=== PATIENT | female | born 1975 | race American Indian/Alaskan Native ===

== ENCOUNTER 2016-11-03 10:06 | Emergency (ER) | payer OTHER ==
--- NOTE | 2016-11-03 10:28 | Emergency Department Report ---
Chief Complaint: Headache Stated Complaint: MIGRAINE Time Seen by Provider: 11/03/16 10:24 - HPI History of Present Illness: 41 y/o female complain of migraine headache x 3 weeks .pt state she has a shunt in place 2011 from a tumor .pt state she unable to follow up with neurology .pt state sensitive to light with n/v/.pt state she has taken vicoden and percocet .pt state tried motrin and naproxen. - ROS Review of Systems: per HPI - Exam Vital Signs: Vital Signs 11/03/16 10:17 Temperature 98.5 F Pulse Rate 84 Respiratory 18 Rate Blood Pressure 161/113 O2 Sat by Pulse 100 Oximetry Physical Exam: GENERAL: The patient is well-developed and well-nourished. Patient is in NAD. HENT: Normocephalic. Atraumatic. Patient has moist mucous membranes. Throat: No erythema, swelling or exudates. EYES: Extraocular motions are intact, PERRL NECK: Supple. No meningitic signs are noted. There is no adenopathy noted. CHEST/LUNGS: Clear to auscultation bilaterally. No wheezing, rales or rhonchi noted. There is no respiratory distress noted. HEART/CARDIOVASCULAR: Regular rate and rhythm. Normal S1 S2. No murmurs, rubs , clicks, or gallops. ABDOMEN: Abdomen is soft, nontender.. Bowel sounds normoactive. There is no abdominal distention. Negative rebound tenderness. : Deferred. SKIN: There is no rash. There is no edema. There is no diaphoresis. NEURO: The patient is A&Ox3. The patient has no focal neurologic deficits. MUSCULOSKELETAL: There is no tenderness or deformity. There is no limitation range of motion. PSYCH: Pt has appropriate mood and affect. MSE screening note: Focused history and physical exam performed. Due to findings the following was ordered: ED Disposition for MSE Condition: Stable
[2016-11-03 11:01] LABS: Basophils % (Auto) 0.5 % (0.0-1.8); Hemoglobin 14.3 gm/dl (10.1-14.3); Mean Corpuscular HGB Conc 33 % (30-34); Mean Corpuscular Hemoglobin 33 pg (28-32); Mean Corpuscular Volume 98 fl (79-97); Red Cell Distribution Width 13.5 % (13.2-15.2); White Blood Count 4.6 K/mm3 (4.5-11.0)
[2016-11-03 11:22] LABS: Anion Gap 19 mmol/L; Blood Urea Nitrogen 10 mg/dL (7-17); Calcium 8.9 mg/dL (8.4-10.2); Carbon Dioxide 18 mmol/L (22-30); Glucose 107 mg/dL (65-100); Potassium 4.8 mmol/L (3.6-5.0); Sodium 139 mmol/L (137-145)
[2016-11-03 11:23] LABS: Platelet Count 172 K/mm3 (140-440)
[2016-11-03] MEDS ORDERED: REGLAN IV ONE (21:30)
[2016-11-03] MEDS ORDERED: DILAUDID IV ONE (21:30)
[2016-11-03] MEDS ORDERED: MAGNESIUM SULFATE 2GM/50ML 50 ML IV ONE (21:30)
--- NOTE | 2016-11-03 21:32 | Emergency Department Report ---
[id number] Time Seen by Provider: 11/03/16 21:19 Source: patient Mode of arrival: Ambulatory Limitations: No Limitations - History of Present Illness Initial comments: This is a 41-year-old female, previously unknown to me. She reports a past medical history of sickle cell disease, and pseudotumor cerebri. 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 Kellye Reports she has not followed up. She presents to the ER complaining of headache. The headache is throbbing. It has been present for over 3 weeks. It is associated with photophobia, nausea. Patient does describe nonspecific blurry vision, which is binocular. She reports that she will occasionally see double, but that she can "correct" vision as she needs to. This has been also going on for a few weeks. There is no extremity weakness. There is no extremity numbness. There is no ataxia. There is no neck pain or neck stiffness. He reports no relief with over-the- counter medications, and no relief with prescription narcotic therapy which she has received for her sickle cell disease. -: Gradual, week(s) Location: head Quality: aching Consistency: constant Improves with: none Worsens with: none Associated Symptoms: headaches, loss of appetite, nausea/vomiting. denies: confusion, chest pain, cough, diaphoresis, weakness - Related Data Home Medications Medication Instructions Recorded Confirmed Last Taken No Known Home Medications [No 11/03/16 11/03/16 Unknown Reported Home Medications] Allergies Allergy/AdvReac Type Severity Reaction Status Date / Time Sulfa (Sulfonamide Allergy Anaphylaxis Unverified 11/03/16 21:42 Antibiotics) ED Review of Systems ROS: Stated complaint: MIGRAINE Other details as noted in HPI Constitutional: malaise. 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 - Surgical History Past Surgical History?: Yes Hx Cholecystectomy: Yes (2008) Hx Appendectomy: Yes (2007) Additional Surgical History: ROU[employer]IV[employer]IVER shunt - Social History Smoking Status: Former Smoker Substance Use Type: Alcohol - Medications Home Medications: Home Medications Medication Instructions Recorded Confirmed Last Taken Type No Known Home Medications [No 11/03/16 11/03/16 Unknown History Reported Home Medications] ED Physical Exam - General Limitations: No Limitations General appearance: alert, in no apparent distress - Head Head exam: Present: atraumatic, normocephalic - Eye Eye exam: Present: normal appearance, PERRL, EOMI. Absent: nystagmus - ENT ENT exam: Present: normal exam, normal orophraynx, mucous membranes moist, normal external ear exam - Neck Neck exam: Present: normal inspection, full ROM. Absent: tenderness, meningismus - Respiratory Respiratory exam: Present: normal lung sounds bilaterally. Absent: respiratory distress, wheezes, rales, rhonchi, stridor, chest wall tenderness - Cardiovascular Cardiovascular Exam: Present: regular rate, normal rhythm, normal heart sounds. Absent: bradycardia, tachycardia, irregular rhythm, systolic murmur, diastolic murmur, rubs, gallop - GI/Abdominal GI/Abdominal exam: Present: soft, normal bowel sounds. Absent: distended, tenderness, guarding, rebound, rigid, pulsatile mass - Extremities Exam Extremities exam: Present: normal inspection, full ROM, normal capillary refill. Absent: tenderness, pedal edema, joint swelling, calf tenderness - Back Exam Back exam: Present: normal inspection, full ROM. Absent: tenderness, CVA tenderness (R), CVA tenderness (L), muscle spasm, paraspinal tenderness, vertebral tenderness - Neurological Exam Neurological exam: Present: alert, oriented X3, other (Extraocular movements intact. Tongue midline. No facial droop. Facial sensation intact to light touch in the V1, V2, V3 distribution bilaterally. 5 and 5 strength in 4 extremities.. Sensation is intact to light touch in 4 extremities.). Absent: motor sensory deficit - Psychiatric Psychiatric exam: Present: normal affect, normal mood - Skin Skin exam: Present: warm, dry, intact, normal color. Absent: rash ED Course Vital Signs 11/03/16 11/03/16 11/03/16 10:17 21:35 21:41 Temperature 98.5 F 98.5 F Pulse Rate 84 78 Respiratory 18 12 Rate Blood Pressure 161/113 Blood Pressure 171/106 [Right] O2 Sat by Pulse 100 100 100 Oximetry 11/03/16 11/03/16 11/03/16 22:00 23:06 23:22 Temperature Pulse Rate 79 68 Respiratory 17 12 Rate Blood Pressure 171/106 133/90 Blood Pressure [Right] O2 Sat by Pulse 99 100 99 Oximetry - Reevaluation(s) Reevaluation #1: 11/03/16 22:01 Differential diagnosis: Migraine headache, cluster headache, tension headache, [employer] shunt malfunction Assessment and plan: 41-year-old female with 3 weeks of headache. She is afebrile with slight hypertension but otherwise reassuring vital signs. She has a GCS of 15, with an NIH score of 0. Visual acuity is intact to finger counting, color perception, rating at a close distance. We will chew her symptomatically, including giving her hydromorphone. Given her reported history of sickle cell disease, she may have a high degree of pain tolerance, and may benefit from adjunctive narcotic therapy. We will obtain noncontrast CT scan of the head, as well as shunt series. Reevaluation #2: 11/04/16 00:30 CT scan shows non specific findings. case d/w neurosurgery Dr Villavicencio at [facility], who recommends er to er transfer with plan for neurosurgical consultation ED Medical Decision Making - Lab Data Result diagrams: 11/03/16 10:43 11/03/16 10:43 Vital Signs 11/03/16 11/03/16 10:17 21:41 Temperature 98.5 F 98.5 F Pulse Rate 84 78 Respiratory 18 12 Rate Blood Pressure 161/113 Blood Pressure 171/106 [Right] O2 Sat by Pulse 100 100 Oximetry Lab Results 11/03/16 11/03/16 Range/Units 10:43 10:43 WBC 4.6 (4.5-11.0) K/mm3 RBC 4.40 (3.65-5.03) M/mm3 Hgb 14.3 (10.1-14.3) gm/dl Hct 43.0 H (30.3-42.9) % MCV 98 H (79-97) fl MCH 33 H (28-32) pg MCHC 33 (30-34) % RDW 13.5 (13.2-15.2) % Plt Count 172 (140-440) K/mm3 Lymph % (Auto) 47.6 H (13.4-35.0) % [place] % (Auto) 9.1 H (0.0-7.3) % Eos % (Auto) 1.0 (0.0-4.3) % Baso % (Auto) 0.5 (0.0-1.8) % Lymph # 2.2 (1.2-5.4) K/mm3 [place] # 0.4 (0.0-0.8) K/mm3 Eos # 0.0 (0.0-0.4) K/mm3 Baso # 0.0 (0.0-0.1) K/mm3 Seg Neutrophils % 41.8 (40.0-70.0) % Seg Neutrophils # 1.9 (1.8-7.7) K/mm3 Sodium 139 (137-145) mmol/L Potassium 4.8 (3.6-5.0) mmol/L Chloride 107.0 (98-107) mmol/L Carbon Dioxide 18 L (22-30) mmol/L Anion Gap 19 mmol/L BUN 10 (7-17) mg/dL Creatinine 0.8 (0.7-1.2) mg/dL Estimated GFR > 60 ml/min BUN/Creatinine Ratio 12.50 % Glucose 107 H (65-100) mg/dL Calcium 8.9 (8.4-10.2) mg/dL - Radiology Data Radiology results: report reviewed Critical care attestation.: If time is entered above; I have spent that time in minutes in the direct care of this critically ill patient, excluding procedure time. ED Disposition Clinical Impression: History of creation of ventriculoperitoneal shunt Headache Qualifiers: Headache type: unspecified Headache chronicity pattern: acute headache Intractability: not intractable Qualified Code(s): R51 - Headache Disposition: DC/TX SHORT-TERM GEN HOSP INPT Is pt being admited?: No Does the pt Need Aspirin: No Condition: Good Referrals: PRIMARY CARE, [Primary Care Provider] - 3-5 Days
[2016-11-03 22:28] LABS: INR 0.99 (0.87-1.13)
--- NOTE | 2016-11-03 23:58 | Cat Scan Report ---
FINAL REPORT PROCEDURE: CT HEAD/BRAIN WO CON TECHNIQUE: Computerized tomography of the head was performed without contrast material. HISTORY: Headache. Ventriculoperitoneal shunt. COMPARISON: No prior studies are available for comparison. FINDINGS: Skull and scalp: Slight concavity of the left medial orbital wall. Paranasal sinuses: Normal. Ventricles and subarachnoid spaces: Ventriculoperitoneal shunt enters the right frontal area and terminates near the midline in the expected location of right lateral ventricle. Right lateral ventricles not seen. Cerebrum: No evidence of hemorrhage, acute infarction or mass . Cerebellum and brainstem: No evidence of hemorrhage, acute infarction or mass. Vasculature: Normal. Comments: None. IMPRESSION: Right-sided shunt in place, with slit like/non visualized right lateral ventricles. Etiology is uncertain. Consider intermittent proximal catheter obstruction with collapsed ventricle, degree of shunting, or could be related to intracranial pressure and non compliant ventricles among the possible causes; also note findings are asymmetric and only involve the right lateral ventricle. No prior examination available for direct comparison. It would be helpful to directly compare with outside studies to assess for degree of change and consider further evaluation and followup including MRI as felt to be warranted clinically and if patient has no contraindication to MRI. Slight concavity of the left medial orbital wall, cannot exclude subtle age indeterminate, likely chronic left medial orbital wall fracture.
[2016-11-04 00:35] VITALS: BP 133/90
--- NOTE | 2016-11-04 08:38 | XRay Report ---
The AP chest: The MACHINING [employer]PARTMENT SUPERVISOR shunt line is seen coursing through the right soft tissues of the neck and over the mediastinum. The shunt line is difficult to clearly follow since it is obscured by the mediastinal tissues. The mediastinal contour is normal and the lungs are clear. Impression: Unremarkable chest. No apparent shunt line abnormality identified on this limited visualization. Upright KUB: The lower end of the shunt line in the chest as well as in the abdomen is visualized and appears intact. There is a surgical mesh over the epigastrium. The abdominal gas pattern is generally unremarkable. No free air. Impression: Intact shunt tube.
--- NOTE | 2016-11-04 08:38 | XRay Report ---
The AP chest: The SOFTWARE ENGINEERING SUPERVISOR shunt line is seen coursing through the right soft tissues of the neck and over the mediastinum. The shunt line is difficult to clearly follow since it is obscured by the mediastinal tissues. The mediastinal contour is normal and the lungs are clear. Impression: Unremarkable chest. No apparent shunt line abnormality identified on this limited visualization. Upright KUB: The lower end of the shunt line in the chest as well as in the abdomen is visualized and appears intact. There is a surgical mesh over the epigastrium. The abdominal gas pattern is generally unremarkable. No free air. Impression: Intact shunt tube.
== END 2016-11-04 02:01 | disposition short-term general hospital (02) ==
LOC: ED 10:06
DX: G43.909 Migraine, unspecified, not intractable, without status migrainosus (principal); R11.0 Nausea; Z87.891 Personal history of nicotine dependence; Z88.2 Allergy status to sulfonamides
CPT/HCPCS: 36415; 70450; 71010; 74000; 80048; 84702; 85025; 85610; 96365; 96375; 99285; J1170; J2765; J2930; J3475

== ENCOUNTER 2022-03-05 07:34 | Day surgery (SDC) | payer OTHER ==
[2022-03-05] MEDS ORDERED: LACTATED RINGERS 1,000 ML IV SCH (09:00)
--- NOTE | 2022-03-05 11:11 | Anesthesia Consultation ---
Anesthesia Consult and Med Hx Date of service: 03/05/22 - Airway Anesthetic Teeth Evaluation: Good ROM Head & Neck: Adequate Mental/Hyoid Distance: Adequate Mallampati Class: Class II Intubation Access Assessment: Probably Good - Pulmonary Exam CTA: Yes - Cardiac Exam Cardiac Exam: RRR - Pre-Operative Health Status ASA Pre-Surgery Classification: ASA2 Proposed Anesthetic Plan: General - Pulmonary Hx Smoking: No Hx Asthma: No Hx Sleep Apnea: No (BROCK PRE SCREEN LOW RISK) - Cardiovascular System Hx Hypertension: Yes (ON MEDS X 1 WEEK) Hx Coronary Artery Disease: No Hx Heart Attack/AMI: No - Central Nervous System Hx Seizures: No CVA: No Hx Back Pain: Yes (FROM STONE) Hx Psychiatric Problems: No - Gastrointestinal Hx Gastroesophageal Reflux Disease: No - Hematic Hx Anemia: Yes (NOT RECENT) Hx Sickle Cell Disease: Yes (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
--- NOTE | 2022-03-05 11:12 | Anesthesia Day of Surgery ---
Anesthesia Day of Surgery - Day of Surgery Patient Examined: Yes Patient H&P Reviewed: Yes Patient is NPO: Yes
[2022-03-05] MEDS ORDERED: HYDROmorphone 1 MG/1 ML INJ ONE (11:14)
[2022-03-05] MEDS ORDERED: propofoL 200 MG/20 ML VIAL IV ONE (11:14)
[2022-03-05] MEDS ORDERED: MIDAZOLAM 2 MG/2 ML INJ IV NR (11:24)
[2022-03-05] MEDS ORDERED: MIDAZOLAM 2 MG/2 ML INJ ONE (11:25)
[2022-03-05] MEDS ORDERED: ceFAZolin/STERILE WATER 2 GM/20 ML SYRINGE IV SCH (12:00)
--- NOTE | 2022-03-05 12:23 | Post Operative Note ---
Pre-op diagnosis: r ureteral stone Post-op diagnosis: same Findings: upj stone Procedure: r eswl Anesthesia: DOMINGO Surgeon: SRI MORRIS Estimated blood loss: none Pathology: none Condition: stable Disposition: PACU
--- NOTE | 2022-03-05 12:24 | Discharge Summary ---
Short Stay Discharge Plan Activity: other (no straining ) Weight Bearing Status: Full Weight Bearing Diet: low fat, low cholesterol, low salt Durable Medical Equipment Needed Upon Discharge: other (inc fluids ) Follow up with: PRIMARY CARE, [Primary Care Provider] - 7 Days SRI MORRIS MD [Staff Physician] - 7 Days
--- NOTE | 2022-03-05 12:25 | Discharge Summary ---
Short Stay Discharge Plan Activity: other (no striining ) Weight Bearing Status: Full Weight Bearing Diet: low fat, low cholesterol, low salt Durable Medical Equipment Needed Upon Discharge: other (inc fluids ) Follow up with: SRI MORRIS MD [Staff Physician] - 7 Days PRIMARY CARE, [Primary Care Provider] - 7 Days
[2022-03-05] MEDS ORDERED: HYDROcodone/ACETAMINOPHEN 5-325 MG TAB PO PRN (13:05)
--- NOTE | 2022-03-05 13:23 | Operative Report ---
DATE OF SURGERY: 03/05/2022 PREOPERATIVE DIAGNOSIS: Right ureteropelvic junction stone. POSTOPERATIVE DIAGNOSIS: Right ureteropelvic junction stone. PROCEDURE: Right in situ lithotripsy. SURGEON: Roney Eugene MD ANESTHESIA: General. FINDINGS: This is a woman with an upper ureteral stone. She now presents for lithotripsy. DESCRIPTION OF PROCEDURE: The patient was brought to the operating room and placed on the operating table. Stone was well visualized in the AP and oblique image. It was moderately dense. Shocks were begun at 1 kV, increased to 8 kV max. We did a renal pause at about 400-500 shocks. The lower pole may have been overshadowing that stone. At this point, we went to 2700 shocks, no more than 8 kV. It was certainly a less dense stone. I spoke to Dr. Kaiser, I was willing to put up a stent, but he thought he wanted to try the in situ first without the stent. She tolerated the procedure well and brought to recovery in a stable condition. TID: [id number] RECEIPT: [id number] VICKY/VIVIEN/EDGAR
[2022-03-05 13:37] VITALS: BP 125/92
--- NOTE | 2022-03-05 16:32 | Post Anesthesia Evaluation ---
- Post Anesthesia Evaluation Patient Participated: Yes Airway Patent: Yes Stable Respiratory Function: Yes Nausea/Vomiting: No Temp > 96.8F: Yes Pain Manageable: Yes Adequeate Hydration: Yes Anesthesia Complications: No Block Receding Appropriately: Not Applicable Patient on Ventilator: No
== END 2022-03-05 13:50 | disposition home or self-care (01) ==
LOC: OR 07:34
PROVIDERS: ATTEND Urology
DX: N20.1 Calculus of ureter (principal); I10 Essential (primary) hypertension; Z90.49 Acquired absence of other specified parts of digestive tract; Z87.440 Personal history of urinary (tract) infections; Z88.2 Allergy status to sulfonamides; Z72.89 Other problems related to lifestyle; Z79.899 Other long term (current) drug therapy; Z98.890 Other specified postprocedural states
CPT/HCPCS: 50590; J0690; J1170; J2250; J2704; J7120